=== PATIENT | female | born 1980 | race Caucasian/White ===

== ENCOUNTER → 2017-07-24 | Day surgery (SDC) | payer BC ==
[~2017-07-24] MED LIST: LIDOCAINE 1%/EPINEPHrine 1:100,000 SOLN 50 ML VIAL INFIL ONE; MEPERIDINE HCL 25 MG/ML VIAL ONE; MIDAZOLAM HCL 2 MG/2 ML VIAL ONE; PROPOFOL 500 MG/50 ML BTL IV ONE; SODIUM CHLOR 0.9% 1000 ML BAG IV ONE; ceFAZolin 2 GM PREMIX 50 ML ONE
--- NOTE | 2017-07-24 10:50 | TN ---
cc: NORIS SHAH M.D. DATE OF SURGERY 07/24/2017 PREOPERATIVE DIAGNOSIS Right breast atypical ductal hyperplasia. POSTOPERATIVE DIAGNOSIS Right breast atypical ductal hyperplasia. PROCEDURE Right breast needle-localized lumpectomy. SURGEON Dr. Noris Shah ANESTHESIA Local 1% lidocaine with epinephrine plus TIVA INDICATIONS This is a very pleasant 36-year-old woman who had undergone screening mammography which demonstrated microcalcifications in the right breast for which a stereotactic biopsy was recommended and performed. She was found to have benign calcifications and PASH and incidentally in cores without microcalcifications atypical ductal hyperplasia. Plans were made for needle-localized lumpectomy to remove additional tissue to ensure there was no underlying or surrounding additional atypical cells or early breast cancer. INTRAOPERATIVE FINDINGS Generous portion of tissue around the localization needle tip was removed. Microcalcifications were obtained, but on specimen imaging, no clip was obtained. Revaluation of the images and looking at the lumpectomy, they indicated that the most likely place for the clip was going to be anterior and inferior and additional tissue was removed here, however, further imaging did not demonstrate the clip contained. The patient had a normal fibrous fibroglandular tissue for her age. I could not feel anything suspicious and due to the relative small size of her breasts, I did not want to remove any further tissue given the fact she only had incidental atypical ductal hyperplasia and no diagnosis of cancer. It was elected to not remove additional tissue. ESTIMATED BLOOD LOSS Minimal DESCRIPTION OF PROCEDURE IN DETAIL The patient identified as Ruchi Steiner, taken to the operating room, placed in the supine position. Sequential compression devices were placed on bilateral lower extremities. She had undergone right breast needle localization. Following IV sedation by anesthesia, the right breast was prepped and draped in the usual sterile fashion with Betadine. A time-out procedure was performed. Following completion of the time-out procedure to everyone's satisfaction within the room, the proposed infra-areolar incision was made with a marking pen, infiltrated with local anesthetic. The incision was carried out with scalpel. Hemostasis controlled with cautery. Dissection continued posteriorly towards the localization needle. A generous portion of tissue around the localization needle tip and keith was excised from surrounding tissues in the breast using electrocautery. Localization needle was divided at the level of the skin, brought into the surgical wound and the specimen removed in its entirety. It was marked with a short stitch superior anterior and a long stitch lateral posterior, sent for imaging with the above-mentioned findings. The wounds had been irrigated and made hemostatic and closed, was reopened and additional tissue removed from the anterior-inferior location slightly lateral. This specimen was marked with a new suture on the new anterior margin. It was really anterior and inferior. It was imaged and again no clip was obtained. Evaluation of the wound demonstrated no additional suspicious tissue and due to relative small size of the patient's breasts, I elected not to remove further breast tissue. The wound was irrigated copiously with saline. Small bleeding points controlled with electrocautery. The wound was filled with local anesthetic and closed in layers using 3-0 Vicryl and 4-0 Monocryl. Dressing was applied with Mastisol, half-inch brown Steri-Strips, gauze and Tegaderm. The patient tolerated the procedure without apparent complication. Sponge, needle and instrument counts were correct at the end of the case. MD GABRIEL Grewal/ELSIE /10:30 AM /10:40 AM
== END | disposition home or self-care (01) ==
LOC: ESDC 07:26
PROVIDERS: ATTEND Surgery Trauma Surgery
DX: N60.91 Unspecified benign mammary dysplasia of right breast (principal)
CPT/HCPCS: 00400; 19125; 88307; J0690; J2175; J2250; J3010; J7030; 88305